=== PATIENT | female | born 1970 | race Two or more races ===

== ENCOUNTER → 2019-03-31 | Outpatient (CLI) | payer OTHER | END | disposition home or self-care (01) | LOC: RAD 12:04 | DX: J20.8 Acute bronchitis due to other specified organisms (principal) ==

== ENCOUNTER 2024-06-02 15:22 | Outpatient (CLI) | payer OTHER | END 2024-06-02 15:25 | disposition home or self-care (01) | LOC: SONOGRAMA 15:22 | PROVIDERS: ATTEND Pathology Anatomic Pathology | DX: D44.0 Neoplasm of uncertain behavior of thyroid gland (principal); E04.1 Nontoxic single thyroid nodule ==

== ENCOUNTER 2024-10-20 11:01 | Outpatient (CLI) | payer OTHER | END 2024-10-20 11:03 | disposition home or self-care (01) | LOC: SONOGRAMA 11:01 | PROVIDERS: ATTEND Pathology Anatomic Pathology & Clinical Pathology | DX: D44.0 Neoplasm of uncertain behavior of thyroid gland (principal); E04.2 Nontoxic multinodular goiter ==